=== PATIENT | female | born 1995 | race Two or more races ===

== ENCOUNTER → 2021-06-28 | Outpatient (CLI) | payer MEDICAID, SELFPAY ==
[2021-07-01 03:07] LABS: Chlamydia By Nucleic Acid AMP Negative (Negative)
[2021-07-01 07:47] LABS: Gonococcus By Nucleic Acid AMP Negative (Negative)
[2021-07-04 18:07] LABS: HPV Reflexed? NOT INDICATED
== END | disposition home or self-care (01) ==
LOC: LABSPEC 06-29 09:33
PROVIDERS: Visit Provider Obstetrics & Gynecology
DX: Z12.4 Encounter for screening for malignant neoplasm of cervix (principal); Z11.3 Encounter for screening for infections with a predominantly sexual mode of transmission
CPT/HCPCS: 87491; 87591; 88175; G0145